=== PATIENT | female | born 1970 | race Caucasian/White ===

== ENCOUNTER 2022-02-04 16:23 | Emergency (ER) | payer MEDICAID, OTHER ==
[~2022-02-04] VITALS: Ht 165.1 cm; Wt 89.0 kg
[2022-02-04 16:43] VITALS: BP 136/88
== END 2022-02-04 20:00 | disposition left against medical advice (07) ==
LOC: ER 16:23
DX: Z53.21 Procedure and treatment not carried out due to patient leaving prior to being seen by health care provider (principal); Z98.890 Other specified postprocedural states

== ENCOUNTER 2023-10-10 09:35 | Inpatient (IN) | payer MEDICAID ==
[~2023-10-10] VITALS: Ht 154.9 cm; Wt 90.9 kg
[~2023-10-10 09:35] MED LIST: LEVO-65 MT
[2023-10-10 11:46] LABS: BASOPHILS % 0.9 % (0.0-2.0); DIFFERENTIAL COMMENT 0; EOSINOPHILS % 0.5 % (0.0-5.0); HEMATOCRIT. 40.1 % (36.0-48.0); HEMOGLOBIN. 12.5 g/dL (12.0-16.0); MEAN CORPUSCULAR HEMOGLOBIN 22.1 pg (28.0-32.0); MEAN CORPUSCULAR HGB CONC 31.1 g/dL (31.0-37.0); MEAN CORPUSCULAR VOLUME 71.1 fL (81.0-99.0); MEAN PLATELET VOLUME 8.7 fl (7.4-10.4); MONOCYTES % 6.2 % (2.0-8.0); NEUTROPHILS % 82.4 % (40.0-76.0); PLATELET 280 x1000/uL (130-400); RED BLOOD CELL COUNT 5.64 mill/uL (4.2-5.4); RED CELL DISTRIBUTION WIDTH 16.6 % (11.6-14.6); WHITE BLOOD COUNT 11.4 x1000/uL (4.5-11.0)
[2023-10-10 11:53] LABS: PROTHROMBIN TIME 10.8 sec (9.6-11.0)
[2023-10-10 12:00] LABS: CARBON DIOXIDE 26 mEq/L (21-32); CHLORIDE 104 mEq/L (98-107); POTASSIUM 3.8 mEq/L (3.5-5.1); SODIUM 136 mEq/L (136-145)
[2023-10-10 12:01] LABS: CALCIUM 10.9 mg/dL (8.7-10.4)
[2023-10-10 12:03] LABS: HCG SCREEN NEGATIVE
[2023-10-10 12:05] LABS: CREATININE 0.8 mg/dL (0.6-1.0)
[2023-10-10 12:06] LABS: GLUCOSE 238 mg/dL (70-105); UREA NITROGEN BLOOD 16 mg/dL (9-23)
[2023-10-10 12:07] LABS: ALANINE AMINOTRANSFERASE 22 IU/L (10-49); ASPARTATE AMINOTRANSFERASE 18 IU/L (<34)
[2023-10-10 12:08] LABS: ALBUMIN 5.2 g/dL (3.2-4.8); BILIRUBIN DIRECT 0.2 mg/dL (<=3.0); BILIRUBIN TOTAL 0.6 mg/dL (0.1-1.0); PROTEIN TOTAL 8.9 g/dL (6.0-8.3)
[2023-10-10 12:52] LABS: ETHANOL BLOOD < 10 mg/dL (<10)
[2023-10-10 17:49] LABS: TROPONIN I HIGH SENSITIVITY < 4 ng/L (3.0-34)
[2023-10-10 18:45] LABS: CLARITY URINE CLEAR (CLEAR); COLOR URINE YELLOW (YELLOW); GLUCOSE URINE 1+ (NEGATIVE); KETONES URINE NEGATIVE (NEGATIVE); LEUKOCYTE ESTERASE URINE NEGATIVE (NEGATIVE); NITRITE URINE NEGATIVE (NEGATIVE); OCCULT BLOOD URINE NEGATIVE (NEGATIVE); PROTEIN URINE 2+ (NEGATIVE); SPECIFIC GRAVITY URINE 1.024 (1.005-1.030); UROBILINOGEN URINE 0.2 E.U./dL (0.2-1.0)
[2023-10-10 18:57] LABS: *AMPHETAMINES SCREEN URINE NEGATIVE (NEGATIVE); *BARBITURATES SCREEN URINE NEGATIVE (NEGATIVE); *BENZODIAZEPINES SCREEN URINE NEGATIVE (NEGATIVE); *COCAINE SCREEN URINE NEGATIVE (NEGATIVE); CANNABINOID URINE SCREEN NEGATIVE (NEGATIVE); METHADONE URINE SCREEN NEGATIVE (NEGATIVE); OPIATES URINE SCREEN NEGATIVE (NEGATIVE); PHENCYCLIDINE URINE SCREEN NEGATIVE (NEGATIVE)
[2023-10-10 18:58] LABS: ECSTASY MDMA SCREEN URINE NEGATIVE (NEGATIVE)
[2023-10-10 19:21] LABS: BACTERIA URINE 1+; RBC URINE NONE SEEN /hpf (0-2); SQUAMOUS EPITHELIAL CELL URINE FEW /lpf (RARE/1+); WBC URINE 0-2 /hpf (0-2)
[2023-10-10 22:25] VITALS: BP 132/73; PULSE 97; RESP 20; TEMP 99.3
[2023-10-11] MEDS ORDERED: DEXTROSE 50% WATER 50ML SYRINGE IV PRN
[2023-10-11] MEDS ORDERED: ONDANSETRON HCL 4MG/2ML INJ IV PRN
[2023-10-11] MEDS ORDERED: MORPHINE SULFATE 2 MG/ML CPJ (NOT FOR IM USE) IV PRN
[2023-10-11] MEDS: SODIUM CHLORIDE 0.9% 1,000 ML IV SCH (00:31)
[2023-10-11 01:01] VITALS: BP 132/73; PULSE 97; RESP 20; TEMP 99.3
[2023-10-11 04:00] VITALS: BP 102/64; PULSE 100; RESP 20; TEMP 97.9
[2023-10-11 05:56] LABS: CHLORIDE 107 mEq/L (98-107); POTASSIUM 3.7 mEq/L (3.5-5.1); SODIUM 140 mEq/L (136-145)
[2023-10-11 05:57] LABS: CARBON DIOXIDE 27 mEq/L (21-32)
[2023-10-11 05:58] LABS: BASOPHILS % 0.9 % (0.0-2.0); CALCIUM 9.1 mg/dL (8.7-10.4); EOSINOPHILS % 3.5 % (0.0-5.0); HEMATOCRIT. 34.2 % (36.0-48.0); HEMOGLOBIN. 10.9 g/dL (12.0-16.0); LYMPHOCYTES % 25.7 % (20.0-50.0); MEAN CORPUSCULAR HEMOGLOBIN 22.2 pg (28.0-32.0); MEAN CORPUSCULAR VOLUME 69.4 fL (81.0-99.0); MEAN PLATELET VOLUME 8.4 fl (7.4-10.4); MONOCYTES % 13.2 % (2.0-8.0); NEUTROPHILS % 56.7 % (40.0-76.0); PLATELET 239 x1000/uL (130-400); RED BLOOD CELL COUNT 4.93 mill/uL (4.2-5.4); RED CELL DISTRIBUTION WIDTH 16.4 % (11.6-14.6)
[2023-10-11 06:02] LABS: CREATININE 0.6 mg/dL (0.6-1.0); GLUCOSE 130 mg/dL (70-105)
[2023-10-11 06:10] LABS: UREA NITROGEN BLOOD 14 mg/dL (9-23)
[2023-10-11 06:19] LABS: ADD RBC MORPHOLOGY YES; DIFFERENTIAL COMMENT 1
[2023-10-11] MEDS: BLOOD SUGAR DIAGNOSTIC STRIP TEST SCH (06:36)
[2023-10-11] MEDS ORDERED: NALOXONE HCL 0.4MG/ML VIAL IV PRN (07:45)
[2023-10-11] MEDS ORDERED: IPRATROPIUM/ALBUTEROL 0.5-3(2.5)MG/3ML NEB HHN PRN (07:45)
[2023-10-11] MEDS: INSULIN LISPRO 100 UNITS/ML SUBCUT SCH (07:50)
[2023-10-11 08:00] VITALS: BP 105/62; PULSE 94; RESP 18; TEMP 96.2
[2023-10-11] MEDS: PANTOPRAZOLE SODIUM 40 MG/VIAL IV SCH (11:49)
[2023-10-11 12:00] VITALS: BP 103/65; PULSE 85; RESP 18; TEMP 96.7
[2023-10-11] MEDS: DEXT 5%/0.45% NACL 1000ML 1,000 ML IV SCH (12:03)
[2023-10-11 16:00] VITALS: BP 107/60; PULSE 87; RESP 18; TEMP 96.5
[2023-10-11 19:13] LABS: ANISOCYTOSIS 1+; HYPOCHROMASIA 1+; MICROCYTOSIS 3+; PLATELET ESTIMATE NORMAL
[2023-10-11 20:00] VITALS: BP 117/69; PULSE 82; RESP 17; TEMP 97
[2023-10-12] VITALS: BP 127/86; PULSE 92; RESP 18; TEMP 97.8
[2023-10-12 04:00] VITALS: BP 116/64; TEMP 98.7
[2023-10-12 08:00] VITALS: BP 126/80; PULSE 87; RESP 19; TEMP 96.8
[2023-10-12 12:00] VITALS: BP 112/67; PULSE 80; RESP 18; TEMP 97.1
[2023-10-12 14:37] VITALS: BP 112/67; PULSE 80; TEMP 97; O2SAT 98
[2023-10-12 16:00] VITALS: BP 105/65; PULSE 88; RESP 18; TEMP 97
== END 2023-10-12 18:00 | disposition home or self-care (01) | DRG 254 ==
LOC: ER 09:35 → EDBEDREQ 20:34 → EDBEDREQTM 20:34 → 6EST 22:48
PROVIDERS: ADMIT Internal Medicine; ATTEND Internal Medicine
DX: K43.6 Other and unspecified ventral hernia with obstruction, without gangrene (principal); I11.9 Hypertensive heart disease without heart failure; I10 Essential (primary) hypertension; E11.9 Type 2 diabetes mellitus without complications; E66.01 Morbid (severe) obesity due to excess calories; Z68.37 Body mass index [BMI] 37.0-37.9, adult; E78.00 Pure hypercholesterolemia, unspecified
CPT/HCPCS: 36415; 71045; 74018; 74176; 80048; 80076; 80305; 80320; 81003; 82962; 83036; 84484; 84703; 85025; 99285; C9113; G0480

== ENCOUNTER 2024-04-08 11:51 | Emergency (ER) | payer OTHER ==
[~2024-04-08] VITALS: Ht 157.5 cm; Wt 86.0 kg
[2024-04-08 11:53] VITALS: O2SAT 94
[2024-04-08] MEDS: ONDANSETRON HCL 4MG/2ML INJ IV STA (13:00)
[2024-04-08] MEDS: SODIUM CHLORIDE 0.9% 1,000 ML IV ONE (13:00)
[2024-04-08] MEDS: FAMOTIDINE 20MG/2ML VIAL IV STA (13:00)
[2024-04-08] MEDS: AZITHROMYCIN 500MG/250ML 250 ML IV STA (13:05)
[2024-04-08 13:09] LABS: PROTHROMBIN TIME 11.1 sec (9.6-11.0)
[2024-04-08 13:12] LABS: CHLORIDE 99 mEq/L (98-107); SODIUM 135 mEq/L (136-145)
[2024-04-08 13:13] LABS: CALCIUM 11.1 mg/dL (8.7-10.4); CARBON DIOXIDE 25 mEq/L (21-32)
[2024-04-08 13:18] LABS: CREATININE 0.8 mg/dL (0.6-1.0); GLUCOSE 166 mg/dL (70-105); UREA NITROGEN BLOOD 14 mg/dL (9-23)
[2024-04-08 13:20] LABS: ALANINE AMINOTRANSFERASE 16 IU/L (10-49); ALBUMIN 4.8 g/dL (3.2-4.8); ASPARTATE AMINOTRANSFERASE 20 IU/L (<34); BILIRUBIN DIRECT 0.2 mg/dL (<=3.0); BILIRUBIN TOTAL 0.6 mg/dL (0.1-1.0)
[2024-04-08 13:24] LABS: BASOPHILS % 0.5 % (0.0-2.0); DIFFERENTIAL COMMENT 0; EOSINOPHILS % 0.2 % (0.0-5.0); HEMATOCRIT. 43.3 % (36.0-48.0); HEMOGLOBIN. 13.5 g/dL (12.0-16.0); LYMPHOCYTES % 11.1 % (20.0-50.0); MEAN CORPUSCULAR HEMOGLOBIN 21.8 pg (28.0-32.0); MEAN CORPUSCULAR HGB CONC 31.1 g/dL (31.0-37.0); MEAN CORPUSCULAR VOLUME 70.3 fL (81.0-99.0); MEAN PLATELET VOLUME 9.4 fl (7.4-10.4); MONOCYTES % 8.7 % (2.0-8.0); NEUTROPHILS % 79.5 % (40.0-76.0); PLATELET 172 x1000/uL (130-400); RED BLOOD CELL COUNT 6.16 mill/uL (4.2-5.4); RED CELL DISTRIBUTION WIDTH 16.2 % (11.6-14.6); WHITE BLOOD COUNT 14.7 x1000/uL (4.5-11.0)
[2024-04-08 13:30] LABS: PROTEIN TOTAL 9.1 g/dL (6.0-8.3); TROPONIN I HIGH SENSITIVITY < 4 ng/L (3.0-34)
[2024-04-08] MEDS: CEFTRIAXONE 1GM/50ML 50 ML IV ONE (14:00)
[2024-04-08] MEDS: KETOROLAC 15MG/ML VIAL IV ONE (15:07)
[2024-04-08] MEDS: ONDANSETRON HCL 4MG/2ML INJ IV ONE (15:07)
[2024-04-08 15:54] VITALS: BP 119/68; PULSE 94; RESP 20; TEMP 36.61404; O2SAT 96
== END 2024-04-08 17:09 | disposition short-term general hospital (02) ==
LOC: ER 12:09 → EDBEDREQ 13:46 → EDBEDREQTM 13:46 → ER 17:09
DX: J18.9 Pneumonia, unspecified organism (principal); E11.9 Type 2 diabetes mellitus without complications; K43.9 Ventral hernia without obstruction or gangrene
CPT/HCPCS: 99285; 74176; 96365; 96375; 71045; 80076; 80048; 83690; 85025; 85610; 86850; 86900; 86901; 84484; 36415; 93005; 96368; 96376; J0456; J0696; J3490; J1885; J2405; J7030